=== PATIENT | male | born 1945 | race Caucasian/White ===

== ENCOUNTER 2016-11-27 03:07 | Inpatient (IN) ==
[2016-11-20 14:04] LABS: MANUAL DIFF NEEDED? NO; URINE SOURCE CLEAN CATCH
[2016-11-20 14:26] LABS: BASO% 0.9 % (0.0-0.8); EOS# 0.13 X1000 (0.0-0.7); EOS% 2.3 % (0.0-10.0); HEMATOCRIT 43.7 % (42.0-52.0); HEMOGLOBIN 14.8 g/dL (14.0-18.0); LYMPH# 1.43 X1000 (1.2-3.4); LYMPH% 24.8 % (20.5-51.1); MCH 31.4 PG (27-31); MCHC 33.9 g/dL (33-37); MCV 92.8 FL (81-99); MONO# 0.45 X1000 (0.11-0.59); MONO% 7.8 % (1.7-9.3); MPV 9.9 FL (7.4-10.4); NEUT% 64.2 % (42.2-75.2); PLT 233 X1000 (130-400); RBC 4.71 XMIL (4.7-6.1)
[2016-11-20 14:31] LABS: BILIRUBIN URINE NEGATIVE (NEGATIVE); BLOOD URINE NEGATIVE (NEGATIVE); COLOR YELLOW; GLUCOSE URINE NEGATIVE (NEGATIVE); LEUKOCYTES URINE NEGATIVE (NEGATIVE); NITRITE URINE NEGATIVE (NEGATIVE); PH URINE 5.5; PROTEIN URINE NEGATIVE (NEGATIVE); SP GRAVITY URINE 1.025; TURBIDITY URINE HAZY (CLEAR); URINE MICRO REVIEW NEEDED? YES; UROBILINOGEN URINE NORMAL (NORMAL)
[2016-11-20 14:34] LABS: UR EPITHELIAL CELLS <10 /HPF (<10); URINE BACTERIA NEGATIVE /HPF; URINE RBC <10 /HPF (<10); URINE WBC <10 /HPF (<10)
[2016-11-20 14:39] LABS: INR 1.03; PROTIME 10.8 Seconds (9.2-11.7); PTT 25.7 Seconds (22.0-36.0)
--- NOTE | 2016-11-20 15:13 | EKG Report ---
Test Performed on : 11/20/2016 1:49:30 PM Test Reason : pat Blood Pressure : / mmHG Vent. Rate : 051 BPM Atrial Rate : 051 BPM P-R Int : 198 ms QRS Dur : 104 ms QT Int : 454 ms P-R-T Axes : 056 011 043 degrees QTc Int : 418 ms Sinus bradycardia. Otherwise normal ECG When compared with ECG of 20-APR-2014 13:55, Nonspecific T wave abnormality has replaced inverted T waves in Inferior leads Nonspecific T wave abnormality no longer evident in Lateral leads Confirmed by Jess CHEN, Adrian Decker ([id number]) on 11/22/2016 7:11:23 AM
[2016-11-20 15:19] LABS: AGAP 11; BUN 24 mg/dL (8-22); CALCIUM 8.9 mg/dL (8.8-10.2); CHLORIDE 99 mmol/L (98-107); COSMO 280; POTASSIUM 4.4 mmol/L (3.5-5.1); SODIUM 138 mmol/L (136-145); TCO2 28 mmol/L (25-35); URINE CRYSTALS CA OXALATE PRESENT
[2016-11-27] MEDS ORDERED: FAMOTIDINE 40 MG PO SCH (09:00)
[2016-11-27] MEDS ORDERED: ELIQUIS PO SCH (09:00)
[2016-11-27] MEDS ORDERED: TRIAMCINOLONE ACETONIDE NS SCH (09:00)
[2016-11-27] MEDS ORDERED: LR 1,000 ML ONE (09:20)
[2016-11-27] MEDS ORDERED: KEFZOL 2 GM/D5W 2 GM/50 ML IVPB ONE (09:21)
[2016-11-27] MEDS ORDERED: PEPCID ONE (09:23)
[2016-11-27] MEDS ORDERED: REGLAN ONE (09:23)
[2016-11-27] MEDS ORDERED: CELEBREX ONE (09:23)
[2016-11-27] MEDS ORDERED: COLACE ONE (09:24)
[2016-11-27] MEDS ORDERED: LYRICA ONE ×2 (09:25→09:26)
[2016-11-27] MEDS ORDERED: VANCOMYCIN ONE (10:29)
[2016-11-27] MEDS ORDERED: TORADOL ONE (10:29)
[2016-11-27] MEDS ORDERED: CYKLOKAPRON 1,000 MG/NS 0 MG/0 ML IVPB ONE ×2 (10:30→10:31)
[2016-11-27] MEDS ORDERED: NEOSPORIN G.U. IRRIGANT ONE (10:30)
[2016-11-27] MEDS ORDERED: EXPAREL 1.3% ONE (10:30)
[2016-11-27] MEDS ORDERED: MARCAINE 0.25% PF/EPI 1:200,000 ONE (10:30)
[2016-11-27] MEDS ORDERED: SODIUM CHLORIDE 0.9% ONE (10:30)
[2016-11-27 11:35] LABS: URINE MICRO REVIEW NEEDED? NO; URINE SOURCE CATH
[2016-11-27 11:40] LABS: BILIRUBIN URINE NEGATIVE (NEGATIVE); BLOOD URINE NEGATIVE (NEGATIVE); COLOR YELLOW; GLUCOSE URINE NEGATIVE (NEGATIVE); LEUKOCYTES URINE NEGATIVE (NEGATIVE); NITRITE URINE NEGATIVE (NEGATIVE); PROTEIN URINE NEGATIVE (NEGATIVE); SP GRAVITY URINE 1.021; TURBIDITY URINE CLEAR (CLEAR); UR EPITHELIAL CELLS <10 /HPF (<10); URINE BACTERIA NEGATIVE /HPF; URINE RBC <10 /HPF (<10); URINE WBC <10 /HPF (<10); UROBILINOGEN URINE NORMAL (NORMAL)
--- NOTE | 2016-11-27 14:11 | HISTORY AND PHYSICAL ---
CHIEF COMPLAINT: Left knee pain. HISTORY OF PRESENT ILLNESS: Mr. Gates is a 71-year-old white male who has experienced progressive left knee pain for some time. His pain is worse with weightbearing and other activities. Radiographic evaluation of the left knee reveals findings consistent with advanced degenerative joint disease. Despite conservative therapy, he still has a significant reduction in his ability to perform his normal daily activities and he will be admitted at this time for a left total knee arthroplasty. PRIMARY CARE PROVIDER: Dr. Alcides Perez. ALLERGIES: No known drug allergies. PAST MEDICAL HISTORY: 1. Osteoarthritis. 2. Coronary artery disease. 3. Hypertension. 4. Gastroesophageal reflux disease. 5. Depression. 6. Allergic rhinitis. 7. Factor V deficiency. 8. History of lower extremity deep venous thrombosis. PAST SURGICAL HISTORY: 1. Coronary artery bypass grafting. 2. Lumbar fusion. 3. Cervical fusion. 4. Bilateral shoulder surgery. 5. Transurethral resection of the prostate. 6. Bilateral iliac vein stenting. 7. Right knee arthroscopy. 8. Tonsillectomy. SOCIAL HISTORY: The patient is a remote smoker. He is . He maintains a home with his . CURRENT MEDICATIONS: 1. Aspirin enteric-coated 81 mg daily. 2. Eliquis 2.5 mg by mouth twice daily. 3. Metoprolol 12.5 mg by mouth daily. 4. Osteo Bi-Flex 1 tablet by mouth twice daily. 5. Pepcid 40 mg daily. 6. Celexa 20 mg by mouth daily. 7. Norvasc 5 mg by mouth twice daily. 8. Nasacort inhaled daily. 9. Multivitamin 1 tablet by mouth twice daily. REVIEW OF SYSTEMS: HEENT: No known history of stroke or cerebrovascular disease. The patient is treated for allergic rhinitis. Cardiac: He has a history of coronary artery disease. He is status post coronary artery bypass grafting last year. He also has a history of hypertension. No chest pain, pressure, or other anginal equivalents described at this time. Pulmonary: The patient is a remote long-term smoker. Denies COPD. Gastrointestinal: He is treated for gastroesophageal reflux disease. Genitourinary: He has a history of kidney stones and a history of a transurethral resection of the prostate. Neurological: He takes an antidepressant. Musculoskeletal: He is here today for management of his osteoarthritic left knee. He has a history of advanced degenerative disk disease as well. Other: He has a history of factor V Leiden clotting disorder. He also has a history of deep venous thrombosis and has previously underwent stenting to his bilateral iliac veins. PHYSICAL EXAMINATION: GENERAL: The patient is resting comfortably in bed. He is articulate and able answer all questions fully. HEENT: Head is normocephalic and atraumatic. Pupils are equal, round, react to light. Nares are patent. Throat without exudate. HEART: Regular rate and rhythm. No murmurs, gallops, or rubs. LUNGS: Clear to auscultation bilaterally. GASTROINTESTINAL: The abdomen is flat. Bowel sounds are present. It is nontender. GENITOURINARY: Not examined. NEUROLOGICAL: Gross motor function is intact. He has good sensation to soft touch as well. MUSCULOSKELETAL: No deformity, edema, or ecchymosis is noted of the left knee. He has a good peripheral pulse. IMPRESSION: Degenerative joint disease of the left knee. PLAN: Left total knee arthroplasty. The risks and benefits of surgery were explained to the patient including the risk of anesthesia, , bleeding, infection, damage to tendons, ligaments, nerves, and blood vessels, the possibility of blood clots and other imponderables were discussed and the patient wishes to proceed with operative management at this time. Dictated by WING Gould for Arthur Reveles MD cc: WING Gould MD
[2016-11-27] MEDS ORDERED: DIPRIVAN 1% ONE (14:17)
[2016-11-27] MEDS ORDERED: FENTANYL ONE (14:18)
[2016-11-27] MEDS ORDERED: NS 1,000 ML ONE (14:25)
--- NOTE | 2016-11-27 14:29 | Diag Imaging Result Doc PS360 ---
EXAM: KNEE 1-2 VIEWS-LEFT HISTORY: Left total knee COMPARISON: No comparison findings. FINDINGS: There are skin ayden anteriorly. Surgical drain is found superiorly. There is been orthopedic placement of the left knee. Good alignment of the femoral and tibial components. No fracture. No dislocation. IMPRESSION: Recently replaced left knee. Electronically signed by Antione Davis 11/27/2016 2:27 PM
--- NOTE | 2016-11-27 14:30 | OPERATIVE NOTE ---
PROCEDURE DATE: 11/27/2016 PREOPERATIVE DIAGNOSIS: Degenerative osteoarthritis of the left knee. POSTOPERATIVE DIAGNOSIS: Degenerative osteoarthritis of the left knee. PROCEDURE: Left total knee arthroplasty with DePuy Attune size 7 posterior stabilized femur, size 8 Nevaeh tibial tray, a 5 mm rotating platform tibial insert, and a 41 mm medialized anatomic patella. SURGEON: Arthur Reveles MD PARAEDUCATOR: WING Gould SECOND PBX TECHNICIAN: Yojana Ruiz NP ANESTHESIA: General. IV FLUIDS: 2000 mL lactated Ringer's. ESTIMATED BLOOD LOSS: 50 mL. TOURNIQUET TIME: 100 minutes at 350 mmHg. COMPLICATIONS: None. INDICATION: The patient is a 71-year-old male with chronic history of pain and discomfort in his right knee. His x-rays revealed underlying degenerative osteoarthritis. Recommendation to proceed with total knee arthroplasty was offered. Risks and benefits of surgery were explained, including the risks of anesthesia, , bleeding, infection, failure to relieve pain, postop stiffness, nerve injury, blood clots, and other imponderables. All questions answered, patient and family wished to proceed with surgery. DETAILS OF OPERATION: The patient was taken to the operating room and placed supine on the operating table. Once adequate anesthesia was obtained, patient's left lower extremity subsequently prepped and draped in the usual sterile fashion. An Esmarch was used to exsanguinate the left lower extremity and the tourniquet was inflated to 350 mmHg. A standard anterior incision made with skin knife. Medial and lateral skin envelopes were developed. Standard medial parapatellar arthrotomy was then performed. Patella fat pad was excised. Retractors were then placed. A starting reamer was then passed. The intramedullary guide was then placed with the distal femoral cutting block pinned in position. The distal femoral cut was then performed in standard fashion. A sizing block was placed and measured size 7. Corresponding pins were placed. A size 7 cutting block was placed and the anterior, posterior, and chamfer cuts were then made. After this had been performed, attention was then turned to the proximal tibia. Further resection of the ACL and PCL was performed. Using the extramedullary guide, the proximal tibia cutting block was pinned into position, had good alignment confirmed with the alignment elva. The proximal tibia was then resected. Medial and lateral meniscus was excised. A curved osteotome was used to remove the posterior osteophytes off the distal femur. A spacer block was placed and good soft tissue balance in both flexion and extension. Attention then turned to the proximal tibia where a size 8 tibial tray appeared be correct size and was pinned in position. This followed by a central reamer and a fin punch. A box cutting guide was then pinned on the distal femur and a box cut was performed. The trial femoral component was then placed in position. Two lug holes were drilled. Trial tibial insert was then placed and had good soft tissue balancing. The patella was everted and resected in standard fashion. A size 41 determined to be the correct size. Corresponding holes were drilled. A size 41 trial component was then placed and had some lateral translation, therefore, a lateral release was performed and it had good patella tracking. Trial components were then removed. A small drill was used on the sclerotic bone medially on the proximal tibia. After this the wound was copiously with antibiotic pulsatile lavage while vancomycin was mixed with cement on the back table. Sequential cementing was then performed, first with the tibial tray and excess cement was removed with a [place], followed by the femoral component and excess cement was removed with a [place]. A trial tibial insert was then placed and axial loading and full extension was maintained while cement hardened. The patella cemented in standard fashion. Patella clamp was placed. While the cement was curing, Exparel was placed in the deep soft tissue as well as subcutaneous tissue. After cement cured, peripheral cement was removed with a small osteotome. The 5 mm rotating platform tibial insert had good soft tissue balancing and it was determined to be the correct size. This trial component was then removed. Exparel was placed in the deep posterior capsule. The wound was copiously irrigated once again with antibiotic pulsatile lavage. A size 5 mm rotating platform tibial insert was then placed, had good soft tissue balancing, good range of motion, and good patellofemoral tracking. A one- eighth Hemovac drain was placed and was not sewn in. Copious irrigation then performed once again with antibiotic pulsatile lavage. Number 1 Vicryl used to repair the arthrotomy, followed by 2-0 Vicryl to repair the subcutaneous tissue, and skin ayden. Adaptic, sterile 4 x 4, Webril, cryo unit, Jaiden wrap applied to the left lower extremity. Patient tolerated the procedure well with no complications, transferred to the recovery room in stable condition. cc: Arthur Reveles MD
[2016-11-27] MEDS ORDERED: ZEMURON ONE (14:33)
[2016-11-27] MEDS ORDERED: EPHEDRINE ONE (14:33)
[2016-11-27] MEDS ORDERED: ROBINUL ONE (14:33)
[2016-11-27] MEDS ORDERED: LR 2,000 ML ONE (14:33)
[2016-11-27] MEDS ORDERED: XYLOCAINE-MPF 2% ONE (14:33)
[2016-11-27] MEDS ORDERED: DECADRON ONE (14:33)
[2016-11-27] MEDS ORDERED: OFIRMEV 1000 MG/ISOTONIC SOLN 1,000 MG/100 ML BOTTLE ONE (14:33)
[2016-11-27] MEDS ORDERED: NEOSTIGMINE ONE (14:33)
[2016-11-27] MEDS: NORVASC PO SCH ×2 (15:17→20:29)
[2016-11-27] MEDS: LOPRESSOR PO SCH (15:17)
[2016-11-27] MEDS: CELEXA PO SCH (15:19)
[2016-11-27] MEDS ORDERED: PEPCID PO SCH (15:44)
[2016-11-27] MEDS ORDERED: MILK OF MAGNESIA PO PRN (16:00)
[2016-11-27] MEDS ORDERED: ZOFRAN PO PRN (16:00)
[2016-11-27] MEDS ORDERED: MORPHINE IV PRN (16:01)
[2016-11-27] MEDS ORDERED: VERSED ONE (16:06)
[2016-11-27] MEDS ORDERED: PNEUMOVAX 23 IM ONE (16:15)
[2016-11-27] MEDS: TYLENOL PO SCH (16:28)
[2016-11-27] MEDS: OXY IR PO PRN ×3 (16:28→20:28)
[2016-11-27] MEDS: NS 1,000 ML IV SCH (16:29)
[2016-11-27 17:53] LABS: AGAP 14; BUN 16 mg/dL (8-22); CALCIUM 8.4 mg/dL (8.8-10.2); CHLORIDE 102 mmol/L (98-107); COSMO 286; POTASSIUM 4.2 mmol/L (3.5-5.1); SODIUM 141 mmol/L (136-145); TCO2 25 mmol/L (25-35)
[2016-11-27] MEDS ORDERED: KEFZOL 1 GM/D5W 1 GM/50 ML IVPB IV SCH (18:45)
[2016-11-27] MEDS ORDERED: KEFZOL 1 GM/D5W 1 GM/50 ML IVPB IV ONE (19:01)
[2016-11-27] MEDS: PERIDEX MT SCH (20:27)
[2016-11-27] MEDS: COLACE PO SCH (20:29)
[2016-11-28] MEDS: TYLENOL PO SCH ×3 (00:39→13:07)
[2016-11-28] MEDS: OXY IR PO PRN ×3 (00:40→10:41)
[2016-11-28] MEDS: NS 1,000 ML IV SCH ×2 (00:41→05:14)
[2016-11-28] MEDS ORDERED: KEFZOL 2 GM/D5W 2 GM/50 ML IVPB IV SCH (03:00)
[2016-11-28 05:28] LABS: HEMATOCRIT 33.7 % (42.0-52.0); HEMOGLOBIN 11.3 g/dL (14.0-18.0)
[2016-11-28] MEDS ORDERED: FLONASE NAS SCH (09:00)
[2016-11-28] MEDS ORDERED: ELIQUIS PO SCH (09:00)
[2016-11-28] MEDS: COLACE PO SCH (10:40)
[2016-11-28] MEDS: PERIDEX MT SCH (10:40)
[2016-11-28] MEDS: LOPRESSOR PO SCH (10:41)
[2016-11-28] MEDS: NORVASC PO SCH (10:41)
[2016-11-28] MEDS: CELEXA PO SCH (10:41)
[2016-11-28 16:06] VITALS: BP 129/74
== END 2016-11-28 17:40 | disposition home or self-care (01) ==
LOC: SURHOLD 03:07 → 4N 15:11
PROVIDERS: ADMIT Orthopaedic Surgery Adult Reconstructive Orthopaedic Surgery; ATTEND Orthopaedic Surgery Adult Reconstructive Orthopaedic Surgery

== ENCOUNTER 2017-04-30 01:22 | Inpatient (IN) ==
[2017-04-29 10:50] LABS: MANUAL DIFF NEEDED? NO
[2017-04-29 10:52] LABS: URINE SOURCE CLEAN CATCH
[2017-04-29 11:04] LABS: BASO% 0.9 % (0.0-0.8); EOS# 0.11 X1000 (0.0-0.7); EOS% 2.4 % (0.0-10.0); HEMATOCRIT 43.9 % (42.0-52.0); HEMOGLOBIN 14.7 g/dL (14.0-18.0); LYMPH# 1.43 X1000 (1.2-3.4); LYMPH% 30.9 % (20.5-51.1); MCH 30.4 PG (27-31); MCHC 33.5 g/dL (33-37); MCV 90.7 FL (81-99); MONO# 0.45 X1000 (0.11-0.59); MONO% 9.7 % (1.7-9.3); MPV 9.7 FL (7.4-10.4); NEUT% 56.1 % (42.2-75.2); PLT 220 X1000 (130-400); RBC 4.84 XMIL (4.7-6.1)
[2017-04-29 11:05] LABS: BILIRUBIN URINE NEGATIVE (NEGATIVE); BLOOD URINE NEGATIVE (NEGATIVE); COLOR YELLOW; GLUCOSE URINE NEGATIVE (NEGATIVE); LEUKOCYTES URINE NEGATIVE (NEGATIVE); NITRITE URINE NEGATIVE (NEGATIVE); PROTEIN URINE NEGATIVE (NEGATIVE); SP GRAVITY URINE 1.021; TURBIDITY URINE CLEAR (CLEAR); UROBILINOGEN URINE NORMAL (NORMAL)
[2017-04-29 11:06] LABS: URINE MICRO REVIEW NEEDED? YES
[2017-04-29 11:08] LABS: UR EPITHELIAL CELLS <10 /HPF (<10); URINE BACTERIA NEGATIVE /HPF; URINE RBC <10 /HPF (<10); URINE WBC <10 /HPF (<10)
[2017-04-29 11:16] LABS: INR 1.02; PROTIME 10.7 Seconds (9.2-11.7); PTT 24.4 Seconds (22.0-36.0)
[2017-04-29 11:20] LABS: URINE CASTS NONE SEEN; URINE CRYSTALS CA OXALATE PRESENT; URINE SMALL ROUND CELLS NONE SEEN
[2017-04-29 11:29] LABS: AGAP 8; BUN 22 mg/dL (8-22); CALCIUM 8.6 mg/dL (8.8-10.2); CHLORIDE 103 mmol/L (98-107); COSMO 285; POTASSIUM 4.3 mmol/L (3.5-5.1); SODIUM 141 mmol/L (136-145); TCO2 30 mmol/L (25-35)
--- NOTE | 2017-04-29 13:21 | EKG Report ---
Test Performed on : 04/29/2017 10:15:53 AM Test Reason : PAT Blood Pressure : / mmHG Vent. Rate : 049 BPM Atrial Rate : 049 BPM P-R Int : 202 ms QRS Dur : 094 ms QT Int : 450 ms P-R-T Axes : 067 005 045 degrees QTc Int : 406 ms Sinus bradycardia. Otherwise normal ECG When compared with ECG of 20-NOV-2016 13:49, No significant change was found Confirmed by Kathleen CHEN, Guzman Garcia ([id number]) on 05/01/2017 6:17:19 PM
[2017-04-30] MEDS ORDERED: LYRICA ONE (05:36)
[2017-04-30] MEDS ORDERED: COLACE ONE (05:36)
[2017-04-30] MEDS ORDERED: PEPCID ONE (05:36)
[2017-04-30] MEDS ORDERED: REGLAN ONE (05:36)
[2017-04-30] MEDS ORDERED: CELEBREX ONE (05:37)
[2017-04-30] MEDS ORDERED: LR 1,000 ML ONE (05:37)
[2017-04-30] MEDS ORDERED: KEFZOL 2 GM/D5W 2 GM/50 ML IVPB ONE (05:37)
[2017-04-30] MEDS ORDERED: FLONASE NAS PRN (06:48)
[2017-04-30] MEDS ORDERED: FENTANYL ONE (06:48)
[2017-04-30] MEDS ORDERED: DIPRIVAN 1% ONE ×2 (06:48→08:07)
[2017-04-30] MEDS ORDERED: VERSED ONE (06:48)
[2017-04-30] MEDS ORDERED: XYLOCAINE-MPF 2% ONE (06:49)
[2017-04-30] MEDS ORDERED: DURAMORPH ONE (06:52)
[2017-04-30] MEDS ORDERED: VANCOMYCIN ONE (06:52)
[2017-04-30] MEDS ORDERED: MARCAINE 0.25% PF ONE (06:52)
[2017-04-30] MEDS ORDERED: TORADOL ONE (06:52)
[2017-04-30] MEDS ORDERED: EXPAREL 1.3% ONE (06:53)
[2017-04-30] MEDS ORDERED: SODIUM CHLORIDE 0.9% ONE (06:53)
[2017-04-30] MEDS ORDERED: NEOSPORIN G.U. IRRIGANT ONE (06:53)
[2017-04-30] MEDS ORDERED: CYKLOKAPRON 1,000 MG/NS 1,000 MG/100 ML IVPB ONE ×2 (06:53)
[2017-04-30] MEDS ORDERED: DECADRON ONE (07:51)
[2017-04-30] MEDS ORDERED: ZOFRAN ONE (07:51)
[2017-04-30] MEDS ORDERED: OFIRMEV 1000 MG/ISOTONIC SOLN 1,000 MG/100 ML BOTTLE ONE (07:51)
[2017-04-30 08:18] LABS: URINE SOURCE CATH
[2017-04-30 08:21] LABS: BILIRUBIN URINE NEGATIVE (NEGATIVE); BLOOD URINE NEGATIVE (NEGATIVE); COLOR YELLOW; GLUCOSE URINE NEGATIVE (NEGATIVE); LEUKOCYTES URINE NEGATIVE (NEGATIVE); NITRITE URINE NEGATIVE (NEGATIVE); PH URINE 5.5; PROTEIN URINE NEGATIVE (NEGATIVE); SP GRAVITY URINE 1.025; TURBIDITY URINE CLEAR (CLEAR); UROBILINOGEN URINE NORMAL (NORMAL)
[2017-04-30 08:23] LABS: URINE MICRO REVIEW NEEDED? YES
[2017-04-30 08:59] LABS: UR EPITHELIAL CELLS <10 /HPF (<10); URINE BACTERIA NEGATIVE /HPF; URINE WBC <10 /HPF (<10)
[2017-04-30 09:00] LABS: URINE CRYSTALS CA OXALATE PRESENT
[2017-04-30] MEDS ORDERED: NS 1,000 ML ONE (09:41)
--- NOTE | 2017-04-30 09:47 | OPERATIVE NOTE ---
PROCEDURE DATE: 04/30/2017 PREOPERATIVE DIAGNOSIS: Degenerative osteoarthritis of the right knee. POSTOPERATIVE DIAGNOSIS: Degenerative osteoarthritis of the right knee. PROCEDURE PERFORMED: Right total knee arthroplasty with DePuy Attune size 8 posterior stabilized femur, a size 8 tibial tray, a 7 mm rotating platform tibial insert, and a 41 mm medialized anatomic patella. SURGEON: Arthur Reveles MD. DRESSAGE JUDGE: WING Gould. SECOND EDUCATION NURSE: Roney Solis RN. ANESTHESIA: Spinal. IV FLUIDS: 1800 mL of lactated Ringer's. ESTIMATED BLOOD LOSS: 50 mL. TOURNIQUET TIME: 90 minutes at 350 mmHg. COMPLICATIONS: None. INDICATIONS: The patient is a 71-year-old male with a chronic history of worsening pain and discomfort in his right knee. He has continued pain and discomfort despite appropriate nonoperative treatment. X-rays revealed underlying osteoarthritis. Recommendation to proceed with a right total knee arthroplasty was offered. Risks and benefits of surgery were explained, including the risks of anesthesia, , bleeding, infection, failure to relieve pain, postoperative stiffness, nerve injury, blood clots, and other imponderables. All questions were answered. The patient and family wished to proceed with surgery. DETAILS OF OPERATION: The patient was taken to the operating room and placed supine on the operating table. Once adequate anesthesia was obtained, the patient's right lower extremity was subsequently prepped and draped in the usual sterile fashion. An Esmarch was used to exsanguinate the right lower extremity and the tourniquet was inflated to 350 mmHg. A standard anterior incision was made with a skin knife. Medial and lateral skin envelopes were developed. Standard medial parapatellar arthrotomy was then performed. Patella fat pad was excised. Retractors were then placed. Approximately 1 cm anterior to the PCL insertion, a starting reamer was passed. Intramedullary guide with a distal cutting block was pinned in position. A distal femoral cut was then performed in a standard fashion. A spacer block was then placed. It measured size 8. Corresponding pins were placed. Anterior, posterior, and chamfer cuts were then made. Attention was turned to the proximal tibia where further resection of the ACL and PCL was performed. Using the extramedullary guide, the proximal tibia cutting block was pinned in position. It had good alignment confirmed with the alignment elva. Resection of the proximal tibia was then performed. The medial and lateral menisci were excised. A curved osteotome was used to remove the posterior osteophytes off the distal femur. A spacer block was placed and had good soft tissue balance in both flexion and extension. After this had been performed, the attention turned to the distal femur. A box cutting guide was performed. A box cut was then performed. The trial femoral component was then placed and 2 lug holes were drilled. The patella was everted and resected in a standard fashion. A size 41 patella appeared to be the correct size. This was followed by drill holes were punched and the trial component was placed. Attention turned back to the proximal tibia where a size 8 appeared to be the correct size. The tibial tray was placed in position. This was followed by a central reamer and a fin punch. A trial tibial insert was then placed and basically had good soft tissue balance good range of motion. The patella had some lateral tracking. Therefore, a lateral release was performed and it had good patellofemoral tracking at that point. After this had been performed, all components were then removed. Copious irrigation was performed with antibiotic pulsatile lavage while vancomycin was mixed with cement on the back table. Sequential cementing was then performed, first with the tibial tray and excess cement was removed with a [place], followed by the femoral component and has excess cement was removed with a [place], followed by the tibial insert in full extension and axial loading was maintained while the cement cured. The patella was cemented in a standard fashion. Patella clamp was placed. After this had been performed, after cement had cured, the peripheral cement was removed with a small osteotome. The 7 mm appeared to be the correct size on the tibial insert. The trial insert was removed. Exparel was placed in the deep posterior capsule. Copious irrigation was then performed once again with antibiotic pulsatile lavage. A 7 mm rotating platform tibial insert was then placed. The knee was then carried through range of motion. It had good soft tissue balance and range of motion and good patellofemoral tracking. A 1/8 Hemovac drain was placed. It was not sewn in. Copious irrigation was then performed once again with antibiotic pulsatile lavage. The #1 Vicryl was used to repair the arthrotomy, followed by 2-0 Vicryl to repair the subcutaneous tissue, and skin ayden. Sterile 4 x 4s, ABD pad, Webril, cryo unit, and an Jaiden wrap were applied to the right lower extremity. Patient tolerated the procedure well with no complications and was transferred to the recovery room in stable condition. cc: Arthur Reveles MD
--- NOTE | 2017-04-30 10:11 | Diag Imaging Result Doc PS360 ---
EXAM: KNEE 1-2 VIEWS-RIGHT HISTORY: R TKA TECHNIQUE: Right knee two views COMMENT: There is a total knee arthroplasty. There appears to be appropriate alignment. IMPRESSION: Postsurgical change. Electronically signed by Waylon Randolph 04/30/2017 10:09 AM
[2017-04-30] MEDS: PEPCID PO SCH (10:41)
[2017-04-30] MEDS: CELEXA PO SCH (10:41)
[2017-04-30] MEDS: LOPRESSOR PO SCH (10:41)
[2017-04-30] MEDS: NORVASC PO SCH ×2 (10:42→21:14)
[2017-04-30] MEDS ORDERED: ZOFRAN IV PRN (11:15)
[2017-04-30] MEDS ORDERED: ZOFRAN PO PRN (11:15)
[2017-04-30] MEDS ORDERED: MORPHINE IV PRN (11:15)
[2017-04-30] MEDS ORDERED: MILK OF MAGNESIA PO PRN (11:15)
[2017-04-30] MEDS: NS 1,000 ML IV SCH ×2 (11:58→22:36)
[2017-04-30] MEDS: OXY IR PO PRN ×4 (12:42→21:13)
[2017-04-30] MEDS: KEFZOL 2 GM/D5W 2 GM/50 ML IVPB IV SCH ×2 (14:31→22:36)
[2017-04-30] MEDS: TYLENOL PO SCH ×2 (14:31→21:13)
[2017-04-30] MEDS: COLACE PO SCH (21:13)
[2017-04-30] MEDS: PERIDEX MT SCH (21:14)
[2017-05-01] MEDS: TYLENOL PO SCH ×2 (02:30→09:45)
[2017-05-01] MEDS: OXY IR PO PRN ×3 (02:30→09:47)
[2017-05-01] MEDS: ELIQUIS PO SCH ×2 (05:17→09:45)
[2017-05-01 05:48] LABS: HEMATOCRIT 33.9 % (42.0-52.0); HEMOGLOBIN 11.3 g/dL (14.0-18.0)
[2017-05-01 06:18] LABS: AGAP 7; BUN 15 mg/dL (8-22); CALCIUM 8.2 mg/dL (8.8-10.2); CHLORIDE 107 mmol/L (98-107); COSMO 282; POTASSIUM 3.7 mmol/L (3.5-5.1); SODIUM 140 mmol/L (136-145); TCO2 26 mmol/L (25-35)
--- NOTE | 2017-05-01 06:54 | PROGRESS NOTE ---
DATE: 05/01/2017 SUBJECTIVE: Patient is a pleasant 71-year-old male, who is 1 day status post right total knee arthroplasty. Patient is currently resting comfortably. He did well through the night. He was able to ambulate yesterday afternoon with physical therapy. OBJECTIVE: The patient's dressing is intact. Appears calf is soft. Patient has active dorsiflexion and plantar flexion. Does have some chronic some weakness with dorsiflexion, which was prior to surgery. LABORATORY DATA: Hemoglobin 11.3, hematocrit is 33.9. IMPRESSION: Postoperative day #1 status post right total knee arthroplasty. PLAN: At this point, will discontinue his drain and Garcia and also change his dressing. We will Hep-Lock his IV. Plan on discharging home after physical therapy. Will arrange for outpatient physical therapy. cc: Arthur Reveles MD
[2017-05-01] MEDS: LOPRESSOR PO SCH (09:46)
[2017-05-01] MEDS: CELEXA PO SCH (09:46)
[2017-05-01] MEDS: NORVASC PO SCH (09:47)
[2017-05-01] MEDS: COLACE PO SCH (09:47)
[2017-05-01] MEDS: PEPCID PO SCH (09:47)
[2017-05-01] MEDS: PERIDEX MT SCH (09:49)
[2017-05-01 11:47] VITALS: BP 137/86
== END 2017-05-01 12:10 | disposition home or self-care (01) ==
LOC: SURHOLD 01:22 → 4N 08:12
PROVIDERS: ADMIT Orthopaedic Surgery Adult Reconstructive Orthopaedic Surgery; ATTEND Orthopaedic Surgery Adult Reconstructive Orthopaedic Surgery